=== PATIENT | female | born 1995 | race Caucasian/White ===

== ENCOUNTER 2017-10-24 12:20 | Emergency (ER) | payer OTHER ==
[~2017-10-24] VITALS: Ht 172.7 cm; Wt 54.4 kg
[~2017-10-24 12:20] MED LIST: ABILIFY5 MG PO; AMOXICILLIN500 MG PO; AMOXIL500 MG PO; ATARAX25 MG PO; AUGMENTIN 875 M1 TAB PO; AUGMENTIN 875875 MG PO; BACTRIM DS 8001 TA1 PO; BACTRIM PED152.22 ML PO; BENADRYL50 MG PO; CIPRO250 MG PO; DONNATAL PO; ELIMITE 5%60 GM T; FLEXERIL5 MG PO; HYDROCODONE BIT1 T11 PO; KEFLEX500 MG PO; KENALOG 0.025%15 GM PO; MACROBID100 M1 PO; MACRODANTIN100 MG PO; MIRALAX POWDER255 GM PO; MOTRIN400 MG PO; MOTRIN600 MG PO; MOTRIN800 MG PO; NAPROSYN500 MG PO; NITROFURANTOIN100 MG PO; NKHM; NKHM PO; PHENERGAN W/ DE30 ML PO; PREDNICOT20 MG PO; PRENATAL1 TA3 PO; PRENATAL1 TA7 PO; PROVERA5 MG PO; PYRIDIUM100 MG PO; PYRIDIUM200 M1 PO; PYRIDIUM200 MG PO; STROMECTOL3 MG PO; TRAMADOL HCL50 MG PO; TYLENOL W/ CODEI5 ML PO; ULTRAM50 MG PO; VIBRAMYCIN100 MG PO; ZANTAC 150150 MG PO; ZOFRAN ODT4 MG SL; Zofran4 MG PO
[2017-10-24 13:22] LABS: BASO % 0.2 % (0.0-1.0); EOS # 0.1 10*3/uL (0.0-0.4); EOS % 0.5 % (1.0-4.0); HEMOGLOBIN 12.9 g/dl (12.0-16.0); LYMPH # 0.7 10*3/uL (1.3-4.4); LYMPH % 5.4 % (27.0-41.0); MEAN CELL VOLUME 85.1 fl (81.0-99.0); MEAN CORPUSCULAR HGB 27.4 pg (27.0-31.0); MEAN CORPUSCULAR HGB CONC 32.3 g/dl (33.0-37.0); MEAN PLATELET VOLUME 11.3 fl (9.6-12.3); MONO # 0.6 10*3/uL (0.1-1.0); MONO % 4.5 % (3.0-9.0); NEUT # 11.4 10*3/uL (2.3-7.9); PLATELET COUNT AUTOMATED 261 10*3/uL (130-400); RED CELL DISTRI WIDTH 13.4 % (0-14.5); WHITE BLOOD COUNT 12.8 10*3/uL (4.8-10.8)
[2017-10-24 13:39] LABS: ALKALINE PHOSPHATASE 70 U/L (45-117); BUN 20 mg/dl (7-24); CHLORIDE 105 mmol/L (98-107); CREATININE 0.64 mg/dL (0.55-1.02); LIPASE 131 U/L (73-393); POTASSIUM 3.9 mmol/L (3.5-5.1); SGOT/AST 16 IU/L (3-35); SGPT/ALT 15 U/L (12-78); SODIUM 139 mmol/L (136-145); TOTAL PROTEIN 7.7 gm/dL (6.4-8.2)
[2017-10-24 15:50] LABS: BILIRUBIN NEGATIVE (NEGATIVE); BLOOD NEGATIVE (NEGATIVE); CLARITY SL CLOUDY (CLEAR); COLOR YELLOW (YELLOW); GLUCOSE NEGATIVE (NEGATIVE); KETONE 2+ (NEGATIVE); LEUKO ESTERASE NEGATIVE (NEGATIVE); NITRITE NEGATIVE (NEGATIVE); PH 6.5 (5.0-9.0); SPECIFIC GRAVITY 1.015 (1.005-1.030)
[2017-10-24 16:21] LABS: BACTERIA TRACE; EPITHELIAL CELLS 35-40; MUCOUS 1+; RBC 0-2 rbc/hpf (0-2)
[2017-10-24 17:00] VITALS: BP 121/76
[2017-10-24] MEDS ORDERED: ZOFRAN ODT4 MG SL (17:07)
[2017-10-24] MEDS ORDERED: ZANTAC 150150 MG PO (17:07)
== END 2017-10-24 17:29 | disposition home or self-care (01) ==
LOC: ED 12:20
PROVIDERS: Physician Assistant
DX: R10.13 Epigastric pain (principal); R11.2 Nausea with vomiting, unspecified

== ENCOUNTER 2018-03-17 11:19 | Emergency (ER) | payer OTHER ==
[~2018-03-17] VITALS: Ht 170.1 cm; Wt 48.1 kg
[2018-03-17 11:42] LABS: BILIRUBIN NEGATIVE (NEGATIVE); BLOOD NEGATIVE (NEGATIVE); CLARITY SL CLOUDY (CLEAR); COLOR YELLOW (YELLOW); GLUCOSE NEGATIVE (NEGATIVE); KETONE NEGATIVE (NEGATIVE); LEUKO ESTERASE NEGATIVE (NEGATIVE); NITRITE NEGATIVE (NEGATIVE); PH 5.5 (5.0-9.0); SPECIFIC GRAVITY >= 1.030 (1.005-1.030); UROBILINOGEN 0.2 E.U./dl (0.2-1.0)
[2018-03-17 11:54] LABS: BACTERIA TRACE; MUCOUS 4+; RBC 0-2 rbc/hpf (0-2); WBC 0-2 wbc/hpf (0-5)
== END 2018-03-17 12:14 | disposition home or self-care (01) ==
LOC: ED 11:19
PROVIDERS: Emergency Medicine
DX: R10.2 Pelvic and perineal pain (principal); R11.0 Nausea; Z79.899 Other long term (current) drug therapy

== ENCOUNTER 2018-03-26 12:55 | Emergency (ER) | payer OTHER ==
[~2018-03-26] VITALS: Ht 170.1 cm; Wt 45.4 kg
[2018-03-26 12:58] VITALS: BP 121/84
[2018-03-26 13:18] LABS: BILIRUBIN NEGATIVE (NEGATIVE); BLOOD NEGATIVE (NEGATIVE); CLARITY CLEAR (CLEAR); COLOR YELLOW (YELLOW); GLUCOSE NEGATIVE (NEGATIVE); KETONE NEGATIVE (NEGATIVE); LEUKO ESTERASE NEGATIVE (NEGATIVE); NITRITE NEGATIVE (NEGATIVE); SPECIFIC GRAVITY 1.025 (1.005-1.030)
[2018-03-26 13:28] LABS: BACTERIA 1+; MUCOUS 1+; RBC 0-2 rbc/hpf (0-2)
== END 2018-03-26 14:39 | disposition home or self-care (01) ==
LOC: ED 12:55
PROVIDERS: Nurse Practitioner Family
DX: O21.9 Vomiting of pregnancy, unspecified (principal); Z3A.01 Less than 8 weeks gestation of pregnancy; Z32.01 Encounter for pregnancy test, result positive

== ENCOUNTER 2018-04-16 15:12 | Emergency (ER) | payer OTHER ==
[~2018-04-16] VITALS: Ht 167.6 cm; Wt 45.4 kg
[2018-04-16 15:16] VITALS: BP 114/75
[2018-04-16 15:38] LABS: BILIRUBIN NEGATIVE (NEGATIVE); BLOOD NEGATIVE (NEGATIVE); CLARITY CLEAR (CLEAR); COLOR YELLOW (YELLOW); GLUCOSE NEGATIVE (NEGATIVE); KETONE NEGATIVE (NEGATIVE); LEUKO ESTERASE NEGATIVE (NEGATIVE); NITRITE NEGATIVE (NEGATIVE); UROBILINOGEN 0.2 E.U./dl (0.2-1.0)
[2018-04-16 15:47] LABS: BACTERIA 1+; MUCOUS 1+
[2018-04-16] MEDS ORDERED: FLAGYL500 MG PO (18:02)
== END 2018-04-16 17:55 | disposition home or self-care (01) ==
LOC: ED 15:12
PROVIDERS: Emergency Medicine
DX: N76.0 Acute vaginitis (principal); B96.89 Other specified bacterial agents as the cause of diseases classified elsewhere; Z79.899 Other long term (current) drug therapy

== ENCOUNTER → 2021-08-18 | Outpatient (CLI) | payer OTHER ==
[~2021-08-18] MED LIST changes: +FLAGYL500 MG PO
== END | disposition home or self-care (01) ==
LOC: COVID19 16:37
PROVIDERS: ATTEND Internal Medicine
DX: Z11.52 Encounter for screening for COVID-19 (principal)

== ENCOUNTER 2022-07-20 09:42 | Emergency (ER) | payer OTHER ==
[~2022-07-20] VITALS: Wt 65.8 kg
[2022-07-20 09:44] VITALS: BP 127/88
== END 2022-07-20 10:30 | disposition home or self-care (01) ==
LOC: ED 09:42
DX: B34.9 Viral infection, unspecified (principal)

== ENCOUNTER 2022-11-22 09:46 | Emergency (ER) | payer OTHER ==
[~2022-11-22] VITALS: Wt 65.8 kg
[2022-11-22 09:49] VITALS: BP 120/80
[2022-11-22 10:50] LABS: BILIRUBIN Negative (Negative); BLOOD Negative (Negative); CLARITY Clear (Clear); COLOR Yellow (Yellow); GLUCOSE Negative (Negative); KETONE Negative (Negative); LEUKO ESTERASE Negative (Negative); NITRITE Negative (Negative); PH 6.5 (4.5-8.0); SPECIFIC GRAVITY <= 1.005 (1.001-1.030); UROBILINOGEN 0.2 E.U./dl (0.0-1.0)
[2022-11-22 11:36] LABS: BACTERIA 1+; EPITHELIAL CELLS 21-30; WBC 0-2 wbc/hpf (0-5)
[2022-11-22] MEDS ORDERED: DOXYCYCLINE HY100 M3 PO (12:19)
== END 2022-11-22 13:21 | disposition home or self-care (01) ==
LOC: ED 09:46
PROVIDERS: Family Medicine
DX: R30.0 Dysuria (principal); Z98.890 Other specified postprocedural states

== ENCOUNTER 2022-12-27 09:21 | Emergency (ER) | payer OTHER ==
[~2022-12-27] VITALS: Ht 167.6 cm; Wt 65.8 kg
[~2022-12-27 09:21] MED LIST changes: +DOXYCYCLINE HY100 M3 PO
[2022-12-27 09:27] VITALS: BP 116/78
[2022-12-27] MEDS ORDERED: AMOXICILLIN875 MG PO (14:15)
== END 2022-12-27 12:42 | disposition home or self-care (01) ==
LOC: ED 09:21
DX: J02.0 Streptococcal pharyngitis (principal); Z98.890 Other specified postprocedural states; Z20.822 Contact with and (suspected) exposure to COVID-19

== ENCOUNTER 2023-06-30 12:27 | Emergency (ER) | payer OTHER ==
[~2023-06-30] VITALS: Ht 170.1 cm; Wt 59.9 kg
[~2023-06-30 12:27] MED LIST changes: +AMOXICILLIN875 MG PO
[2023-06-30 12:45] VITALS: BP 121/88
[2023-06-30] MEDS ORDERED: MOXIFLOXACIN H400 M1 PO (12:46)
[2023-06-30 13:13] LABS: BILIRUBIN Negative (Negative); BLOOD Trace-Lysed (Negative); CLARITY Clear (Clear); COLOR Yellow (Yellow); GLUCOSE Negative (Negative); KETONE Negative (Negative); LEUKO ESTERASE 1+ (Negative); NITRITE Negative (Negative); PH 5.5 (4.5-8.0)
[2023-06-30 13:26] LABS: BACTERIA 2+; EPITHELIAL CELLS 0-2; MUCOUS 2+; WBC 16-20 wbc/hpf (0-5)
[2023-06-30] MEDS ORDERED: METRONIDAZOLE500 M1 PO (13:43)
[2023-06-30] MEDS ORDERED: SEPTDS PO (13:43)
[2023-06-30] MEDS ORDERED: CIPRO500 MG PO (13:43)
== END 2023-06-30 14:07 | disposition home or self-care (01) ==
LOC: ED 12:27
PROVIDERS: Physician Assistant Medical
DX: A64 Unspecified sexually transmitted disease (principal); N39.0 Urinary tract infection, site not specified; Z98.890 Other specified postprocedural states

== ENCOUNTER 2023-08-28 09:09 | Emergency (ER) | payer OTHER ==
[~2023-08-28] VITALS: Ht 170.1 cm; Wt 59.9 kg
[~2023-08-28 09:09] MED LIST changes: +CIPRO500 MG PO; +METRONIDAZOLE500 M1 PO; +MOXIFLOXACIN H400 M1 PO; +SEPTDS PO
[2023-08-28 09:21] VITALS: BP 132/88
[2023-08-28 10:20] LABS: BASO # 0.1 10*3/uL (0.0-0.1); EOS # 0.1 10*3/uL (0.0-0.4); EOS % 1.5 % (1.0-4.0); HEMATOCRIT 43.3 % (37.0-47.0); LYMPH # 1.5 10*3/uL (1.3-4.4); MEAN CELL VOLUME 87.8 fl (81.0-99.0); MEAN CORPUSCULAR HGB 28.8 pg (27.0-31.0); MEAN CORPUSCULAR HGB CONC 32.8 g/dl (33.0-37.0); MEAN PLATELET VOLUME 10.9 fl (9.6-12.3); MONO # 0.4 10*3/uL (0.1-1.0); MONO % 6.9 % (3.0-9.0); NEUT % 65.3 % (47.0-73.0); PLATELET COUNT AUTOMATED 275 10*3/uL (130-400); RED BLOOD COUNT 4.93 10*6/uL (4.10-5.10); RED CELL DISTRI WIDTH 12.4 % (0-14.5); WHITE BLOOD COUNT 6.1 10*3/uL (4.8-10.8)
[2023-08-28 10:32] LABS: ACT PARTIAL THROMBO TIME 32.5 SECONDS (20.0-32.1)
[2023-08-28 10:34] LABS: BILIRUBIN Negative (Negative); BLOOD Trace-Lysed (Negative); CLARITY Clear (Clear); COLOR Yellow (Yellow); GLUCOSE Negative (Negative); KETONE Negative (Negative); LEUKO ESTERASE 1+ (Negative); NITRITE Negative (Negative); PH 5.5 (4.5-8.0); UROBILINOGEN 0.2 E.U./dl (0.0-1.0)
[2023-08-28 10:46] LABS: ALKALINE PHOSPHATASE 58 U/L (46-116); BUN 9 mg/dl (9-23); CHLORIDE 106 mmol/L (98-107); LIPASE 35 U/L (12-53); SGPT/ALT 7 U/L (5-49); TOTAL PROTEIN 7.3 gm/dL (6.0-8.0)
[2023-08-28 10:49] LABS: BACTERIA 1+; RBC 0-2 rbc/hpf (0-2); WBC 21-30 wbc/hpf (0-5)
[2023-08-28 10:53] LABS: BETA-HCG, QUANT < 3.0 mIU/mL (3-10)
[2023-08-28] MEDS ORDERED: CIPRO500 MG PO (11:57)
== END 2023-08-28 12:21 | disposition home or self-care (01) ==
LOC: ED 09:09
PROVIDERS: Emergency Medicine
DX: N93.8 Other specified abnormal uterine and vaginal bleeding (principal); N39.0 Urinary tract infection, site not specified; Z97.5 Presence of (intrauterine) contraceptive device; Z79.2 Long term (current) use of antibiotics; Z79.899 Other long term (current) drug therapy

== ENCOUNTER 2024-11-18 13:36 | Emergency (ER) | payer OTHER ==
[~2024-11-18] VITALS: Ht 170.1 cm; Wt 50.3 kg
[2024-11-18] MEDS ORDERED: Ketorolac Tromethamine 15 MG/ML VIAL IV ONE (14:15)
[2024-11-18] MEDS ORDERED: Ondansetron Hydrochloride 4 MG/2 ML VIAL IV ONE (14:15)
[2024-11-18] MEDS ORDERED: SODIUM CHLORIDE 0.9% 1,000 ML IV ONE (14:15)
[2024-11-18 14:23] VITALS: BP 115/71
[2024-11-18 14:24] LABS: BASO # 0.1 10*3/uL (0.0-0.1); BASO % 1.2 % (0.0-1.0); EOS # 0.1 10*3/uL (0.0-0.4); EOS % 0.8 % (1.0-4.0); HEMATOCRIT 41.9 % (37.0-47.0); MEAN CELL VOLUME 89.5 fl (81.0-99.0); MEAN CORPUSCULAR HGB 28.4 pg (27.0-31.0); MEAN CORPUSCULAR HGB CONC 31.7 g/dl (33.0-37.0); MEAN PLATELET VOLUME 11.4 fl (9.6-12.3); MONO # 0.5 10*3/uL (0.1-1.0); MONO % 5.8 % (3.0-9.0); NEUT # 6.7 10*3/uL (2.3-7.9); NEUT % 73.2 % (47.0-73.0); PLATELET COUNT AUTOMATED 211 10*3/uL (130-400); RED BLOOD COUNT 4.68 10*6/uL (4.10-5.10); RED CELL DISTRI WIDTH 12.1 % (0-14.5); WHITE BLOOD COUNT 9.1 10*3/uL (4.8-10.8)
[2024-11-18 14:50] LABS: BUN 10 mg/dl (9-23); CHLORIDE 107 mmol/L (98-107)
[2024-11-18 14:54] LABS: B-hCG (QUALITATIVE) NEGATIVE (NEGATIVE)
[2024-11-18 15:09] LABS: BILIRUBIN Negative (Negative); BLOOD Negative (Negative); CLARITY Clear (Clear); COLOR Yellow (Yellow); GLUCOSE Negative (Negative); KETONE Negative (Negative); LEUKO ESTERASE Negative (Negative); NITRITE Negative (Negative); PH 5.5 (4.5-8.0); SPECIFIC GRAVITY >= 1.030 (1.001-1.030)
[2024-11-18 15:33] LABS: FINE GRANULAR CAST 0-2; MUCOUS 1+; WBC 0-2 wbc/hpf (0-5)
[2024-11-18] MEDS ORDERED: Ondansetron4 MG PO (15:40)
[2024-11-18] MEDS ORDERED: MELOXICAM15 MG PO (15:40)
== END 2024-11-18 16:35 | disposition home or self-care (01) ==
LOC: ED 13:36
PROVIDERS: Emergency Medicine
DX: R10.9 Unspecified abdominal pain (principal); R11.2 Nausea with vomiting, unspecified; R30.0 Dysuria; Z98.890 Other specified postprocedural states

== ENCOUNTER 2024-12-31 09:08 | Emergency (ER) | payer OTHER ==
[~2024-12-31] VITALS: Ht 170.1 cm; Wt 49.9 kg
[~2024-12-31 09:08] MED LIST changes: +MELOXICAM15 MG PO; +Ondansetron4 MG PO
[2024-12-31 09:38] VITALS: BP 104/80
[2024-12-31] MEDS ORDERED: MEDROL DOSEPAK4 MG PO (12:12)
[2024-12-31] MEDS ORDERED: AVPAK AZITHROM250 MG PO (12:12)
== END 2024-12-31 12:21 | disposition home or self-care (01) ==
LOC: ED 09:08
DX: J40 Bronchitis, not specified as acute or chronic (principal); Z20.822 Contact with and (suspected) exposure to COVID-19; Z98.890 Other specified postprocedural states